=== PATIENT | female | born 1980 | race Caucasian/White ===

== ENCOUNTER 2017-09-20 06:57 | Day surgery (SDC) | payer BC ==
[2017-09-20] MEDS ORDERED: BUPIVACAINE 0.25% (MPF) 30 ML INJ (08:43)
[2017-09-20] MEDS ORDERED: PROPOFOL 100 ML (08:58)
[2017-09-20] MEDS ORDERED: ROCURONIUM 50 MG INJ ×2 (08:58→21:23)
[2017-09-20] MEDS ORDERED: CEFAZOLIN 1 GM INJ ×2 (08:58→21:23)
[2017-09-20] MEDS ORDERED: ACETAMINOPHEN 1000MG/100ML IV 100 ML (09:04)
[2017-09-20] MEDS ORDERED: DEXAMETHASONE 4 MG/ML 1 ML INJ ×2 (09:21→21:23)
[2017-09-20] MEDS ORDERED: ONDANSETRON 4 MG INJ ×2 (09:22→21:23)
[2017-09-20] MEDS ORDERED: LABETALOL HCL 20MG INJ (09:23)
[2017-09-20] MEDS ORDERED: SUGAMMADEX SODIUM 200 MG/2 ML VIAL IV (09:38)
[2017-09-20] MEDS: BUPIVACAINE 0.25% (MPF) 30 ML INJ (09:38)
[2017-09-20] MEDS ORDERED: ALBUTEROL 0.083% (NEB) 2.5 MG/3 ML AMP (10:13)
[2017-09-20] MEDS ORDERED: EPHEDrine SULFATE 50 MG/5 ML SYG IV (10:30)
[2017-09-20] MEDS ORDERED: FENTAnyl 50 MCG/ML VIAL IV ×2 (10:30)
[2017-09-20] MEDS ORDERED: MEPERIDINE 25 MG INJ IV (10:30)
[2017-09-20] MEDS ORDERED: DIPHENHYDRAMINE 50 MG INJ IV (10:30)
[2017-09-20] MEDS ORDERED: HYDROmorphONE (0.2 MG/ML) 10ML SYG IV (10:30)
[2017-09-20] MEDS ORDERED: hydrALAzine 20 MG INJ IV (10:30)
[2017-09-20] MEDS ORDERED: KETOROLAC 30 MG INJ IV (10:30)
[2017-09-20] MEDS ORDERED: LABETALOL HCL 20MG INJ IV (10:30)
[2017-09-20] MEDS ORDERED: OXYCODONE/ACETAMINOPHEN (5/325) TAB PO ×2 (10:30)
[2017-09-20] MEDS: ALBUTEROL 0.083% (NEB) 2.5 MG/3 ML AMP HHN (10:32)
[2017-09-20] MEDS: HYDROmorphONE (0.2 MG/ML) 10ML SYG IV (10:48)
[2017-09-20] MEDS: METOCLOPRAMIDE 10 MG INJ IV (11:21)
[2017-09-20] MEDS: ONDANSETRON 4 MG INJ IV (12:22)
[2017-09-20] MEDS ORDERED: GLYCOPYRROLATE 0.4 MG INJ (21:23)
[2017-09-20] MEDS ORDERED: MIDAZOLAM 1 MG/ML 2 ML INJ (21:23)
[2017-09-20] MEDS ORDERED: NEOSTIGMINE 3 MG/3 ML SYRINGE (21:23)
[2017-09-20] MEDS ORDERED: PROPOFOL 20 ML (21:23)
[2017-09-20] MEDS ORDERED: FENTAnyl 50 MCG/ML VIAL (21:23)
[2017-09-20] MEDS ORDERED: METOCLOPRAMIDE 10 MG INJ (21:51)
== END 2017-09-20 12:32 | disposition home or self-care (01) ==
LOC: SDS 06:57
DX: J35.01 Chronic tonsillitis (principal); J45.909 Unspecified asthma, uncomplicated
CPT/HCPCS: 42826; 84703; 94664

== ENCOUNTER 2017-09-20 19:28 | Observation (INO) | payer BC ==
[2017-09-20] MEDS: ONDANSETRON 4 MG INJ IV (19:53)
[2017-09-20] MEDS: SOD CHLORIDE 0.9% 1,000 ML IV (19:54)
[2017-09-20] MEDS ORDERED: BUPIVACAINE 0.25% (MPF) 30 ML INJ (20:54)
[2017-09-20 21:34] LABS: ADD MAN DIFF? NO
[2017-09-20 21:36] LABS: WHITE BLOOD COUNT 11.3 10^3/ul (4.8-10.8)
[2017-09-20 21:36] LABS: BASOPHILS % 0.1 % (0.0-2.0); HEMATOCRIT 35.3 % (37.0-47.0); HEMOGLOBIN 12.1 g/dl (12.0-16.0); LYMPHOCYTES # 0.6 10^3/ul (0.8-2.9); LYMPHOCYTES % 5.5 % (15.0-51.0); MEAN CORPUSCULAR HEMOGLOBIN 30.2 pg (29.0-33.0); MEAN CORPUSCULAR HGB CONC 34.3 g/dl (32.0-37.0); MEAN PLATELET VOLUME 10.4 fl (7.4-10.4); MONOCYTE # 0.1 10^3/ul (0.3-0.9); MONOCYTES % 0.6 % (0.0-11.0); NEUTROPHIL # 10.6 10^3/ul (1.6-7.5); NEUTROPHILS % 93.5 % (39.0-77.0); PLATELET COUNT 337 10^3/UL (140-415); RED BLOOD COUNT 4.01 10^6/ul (4.20-5.40); RED CELL DISTRIBUTION WIDTH 12.2 % (11.5-14.5)
[2017-09-20] MEDS ORDERED: morphine 2 MG INJ IV (22:00)
[2017-09-20] MEDS ORDERED: FENTAnyl 50 MCG/ML VIAL (22:24)
[2017-09-20] MEDS ORDERED: HYDROmorphONE (0.2 MG/ML) 10ML SYG IV (22:30)
[2017-09-20] MEDS: FENTAnyl 50 MCG/ML VIAL IV (22:44)
[2017-09-21] MEDS: OXYCODONE/ACETAMINOPHEN (5/325) TAB PO ×2 (02:13→08:05)
[2017-09-21] MEDS: ONDANSETRON 4 MG INJ IV ×2 (02:15→08:05)
[2017-09-21 05:34] LABS: HEMATOCRIT 31.3 % (37.0-47.0); HEMOGLOBIN 11.2 g/dl (12.0-16.0)
== END 2017-09-21 10:06 | disposition home or self-care (01) ==
LOC: E/R 19:28 → MS1 20:58 → SDS 20:58 → MS1 23:20
PROVIDERS: Otolaryngology
DX: J95.830 Postprocedural hemorrhage of a respiratory system organ or structure following a respiratory system procedure (principal); J45.909 Unspecified asthma, uncomplicated; Z88.6 Allergy status to analgesic agent; Z88.1 Allergy status to other antibiotic agents; Z88.5 Allergy status to narcotic agent; Z88.8 Allergy status to other drugs, medicaments and biological substances; Y83.8 Other surgical procedures as the cause of abnormal reaction of the patient, or of later complication, without mention of misadventure at the time of the procedure
CPT/HCPCS: 42960; 85014; 85018; 85025; 96374; 99285-25

== ENCOUNTER 2018-01-07 03:48 | Emergency (ER) | payer BC ==
[2018-01-07 04:41] LABS: ADD MAN DIFF? NO
[2018-01-07 04:45] LABS: BASOPHILS % 0.3 % (0.0-2.0); EOSINOPHILS # 0.1 10^3/ul (0.0-0.5); EOSINOPHILS % 1.6 % (0.0-7.0); HEMATOCRIT 40.5 % (37.0-47.0); HEMOGLOBIN 13.4 g/dl (12.0-16.0); LYMPHOCYTES # 2.7 10^3/ul (0.8-2.9); LYMPHOCYTES % 36.2 % (15.0-51.0); MEAN CORPUSCULAR HEMOGLOBIN 29.6 pg (29.0-33.0); MEAN CORPUSCULAR HGB CONC 33.1 g/dl (32.0-37.0); MEAN CORPUSCULAR VOLUME 89.6 fl (82.0-101.0); MEAN PLATELET VOLUME 10.1 fl (7.4-10.4); MONOCYTE # 0.5 10^3/ul (0.3-0.9); MONOCYTES % 7.1 % (0.0-11.0); NEUTROPHIL # 4.1 10^3/ul (1.6-7.5); NEUTROPHILS % 54.7 % (39.0-77.0); PLATELET COUNT 345 10^3/UL (140-415); RED BLOOD COUNT 4.52 10^6/ul (4.20-5.40); RED CELL DISTRIBUTION WIDTH 12.3 % (11.5-14.5)
[2018-01-07 04:45] LABS: WHITE BLOOD COUNT 7.6 10^3/ul (4.8-10.8)
[2018-01-07] MEDS: morphine 4 MG/ML VIAL IV (04:47)
[2018-01-07] MEDS: SOD CHLORIDE 0.9% 1,000 ML IV (04:50)
[2018-01-07] MEDS: ONDANSETRON 4 MG INJ IV (04:50)
[2018-01-07] MEDS: KETOROLAC 30 MG INJ IV (04:50)
[2018-01-07 04:52] LABS: ADD UMIC YES; UR ASCORBIC ACID NEGATIVE (NEGATIVE); UR BILIRUBIN (Dip) NEGATIVE (NEGATIVE); UR BLOOD (Dip) 1+ mg/dL (NEGATIVE); UR CLARITY CLEAR (CLEAR); UR COLOR STRAW (YELLOW); UR GLUCOSE (Dip) NEGATIVE (NEGATIVE); UR KETONES (Dip) NEGATIVE (NEGATIVE); UR LEUKOCYTE ESTERASE (Dip) NEGATIVE Leu/ul (NEGATIVE); UR NITRITE (Dip) NEGATIVE (NEGATIVE); UR RBC 0 /HPF (0-5); UR SPECIFIC GRAVITY (Dip) 1.009 (1.003-1.030); UR SQUAMOUS EPITHELIAL CELL FEW /HPF (FEW); UR TOTAL PROTEIN (Dip) NEGATIVE (NEGATIVE); UR UROBILINOGEN (Dip) NEGATIVE (NEGATIVE); UR WBC 1 /HPF (0-5)
[2018-01-07 05:03] LABS: ALANINE AMINOTRANSFERASE 41 IU/L (13-69); ALBUMIN 4.2 g/dl (3.3-4.9); ALBUMIN/GLOBULIN RATIO 1.23; ALKALINE PHOSPHATASE 75 IU/L (42-121); ANION GAP 10 (8-16); ASPARTATE AMINO TRANSFERASE 31 IU/L (15-46); BILIRUBIN,INDIRECT 0.2 mg/dl (0-1.1); BILIRUBIN,TOTAL 0.2 mg/dl (0.2-1.3); BLOOD UREA NITROGEN 10 mg/dl (7-20); CALCIUM 9.5 mg/dl (8.4-10.2); CARBON DIOXIDE 28 mmol/L (21-31); CHLORIDE 106 mmol/L (97-110); CREATININE 0.56 mg/dl (0.44-1.00); GLUCOSE 100 mg/dl (70-220); LIPASE 144 U/L (23-300); POTASSIUM 3.9 mmol/L (3.5-5.1); SODIUM 140 mmol/L (135-144); TOTAL PROTEIN 7.6 g/dl (6.1-8.1)
== END 2018-01-07 05:55 | disposition home or self-care (01) ==
LOC: E/R 03:48
DX: R10.84 Generalized abdominal pain (principal); R11.2 Nausea with vomiting, unspecified; J45.909 Unspecified asthma, uncomplicated
CPT/HCPCS: 36415; 74176; 80053; 81001; 81025; 83690; 85025; 87086; 96374; 96375; 99285-25

== ENCOUNTER 2018-04-15 07:39 | Emergency (ER) | payer BC ==
[2018-04-15 08:33] LABS: URINE BLOOD (Dip) POC Trace-intact (NEGATIVE); URINE GLUCOSE (Dip) POC Negative (NEGATIVE); URINE KETONES (Dip) POC Negative (NEGATIVE); URINE LEUKOCYTE EST (Dip) POC Negative (NEGATIVE); URINE NITRITE (Dip) POC Negative (NEGATIVE); URINE TOTAL PROTEIN POC Trace (NEGATIVE)
[2018-04-15] MEDS: KETOROLAC 30 MG INJ IM (08:47)
== END 2018-04-15 09:02 | disposition home or self-care (01) ==
LOC: FTE 07:39
DX: R51 Headache (principal); J45.909 Unspecified asthma, uncomplicated
CPT/HCPCS: 81003; 81025; 96372; 99284-25

== ENCOUNTER 2019-04-02 07:04 | Emergency (ER) | payer BC ==
[2019-04-02] MEDS: METHYLPREDNISOLONE 125 MG INJ IV (07:35)
[2019-04-02] MEDS: ALBUTEROL 0.083% (NEB) 2.5 MG/3 ML AMP HHN (07:44)
[2019-04-02] MEDS: IPRATROPIUM (NEB) 0.5 MG/2.5 ML AMP HHN (07:44)
[2019-04-02 08:23] LABS: ADD MAN DIFF? NO
[2019-04-02 08:27] LABS: BASOPHILS % 0.3 % (0.0-2.0); EOSINOPHILS # 0.2 10^3/ul (0.0-0.5); EOSINOPHILS % 2.1 % (0.0-7.0); HEMOGLOBIN 11.5 g/dl (12.0-16.0); LYMPHOCYTES # 3.3 10^3/ul (0.8-2.9); LYMPHOCYTES % 43.1 % (15.0-51.0); MEAN CORPUSCULAR HEMOGLOBIN 29.9 pg (29.0-33.0); MEAN CORPUSCULAR HGB CONC 32.9 g/dl (32.0-37.0); MEAN CORPUSCULAR VOLUME 91.1 fl (82.0-101.0); MEAN PLATELET VOLUME 9.5 fl (7.4-10.4); MONOCYTE # 0.5 10^3/ul (0.3-0.9); MONOCYTES % 6.2 % (0.0-11.0); NEUTROPHIL # 3.7 10^3/ul (1.6-7.5); PLATELET COUNT 311 10^3/UL (140-415); RED BLOOD COUNT 3.84 10^6/ul (4.20-5.40); RED CELL DISTRIBUTION WIDTH 12.3 % (11.5-14.5)
[2019-04-02 08:27] LABS: WHITE BLOOD COUNT 7.8 10^3/ul (4.8-10.8)
[2019-04-02 08:48] LABS: ALANINE AMINOTRANSFERASE 45 IU/L (13-69); ALBUMIN 3.9 g/dl (3.3-4.9); ALBUMIN/GLOBULIN RATIO 1.02; ALKALINE PHOSPHATASE 79 IU/L (42-121); ANION GAP 9 (5-13); ASPARTATE AMINO TRANSFERASE 36 IU/L (15-46); BILIRUBIN,INDIRECT 0.4 mg/dl (0-1.1); BILIRUBIN,TOTAL 0.4 mg/dl (0.2-1.3); BLOOD UREA NITROGEN 12 mg/dl (7-20); CALCIUM 9.4 mg/dl (8.4-10.2); CARBON DIOXIDE 28 mmol/L (21-31); CHLORIDE 102 mmol/L (97-110); CREATININE 0.64 mg/dl (0.44-1.00); Estimated GFR > 60 mL/min (>60); GLUCOSE 108 mg/dl (70-220); POTASSIUM 3.8 mmol/L (3.5-5.1); SODIUM 139 mmol/L (135-144); TOTAL PROTEIN 7.7 g/dl (6.1-8.1)
[2019-04-02 08:54] LABS: D-DIMER 293.08 ng/ml (<460)
[2019-04-02 08:59] LABS: TROPONIN-I < 0.012 ng/ml (0.000-0.120)
== END 2019-04-02 09:20 | disposition home or self-care (01) ==
LOC: FTE 09:20
DX: R09.89 Other specified symptoms and signs involving the circulatory and respiratory systems (principal); J45.909 Unspecified asthma, uncomplicated
CPT/HCPCS: 71045; 80053; 84484; 85025; 85378; 93005; 94664; 96374; 99285-25

== ENCOUNTER 2019-04-02 18:52 | Emergency (ER) | payer BC ==
[2019-04-02] MEDS: SOD CHLORIDE 0.9% 1,000 ML IV (20:09)
[2019-04-02] MEDS: LORAZEPAM 2 MG INJ IV (20:09)
== END 2019-04-02 23:03 | disposition home or self-care (01) ==
LOC: E/R 18:52
DX: F41.1 Generalized anxiety disorder (principal); E86.0 Dehydration; J45.901 Unspecified asthma with (acute) exacerbation; R40.2142 Coma scale, eyes open, spontaneous, at arrival to emergency department; R40.2252 Coma scale, best verbal response, oriented, at arrival to emergency department; R40.2362 Coma scale, best motor response, obeys commands, at arrival to emergency department
CPT/HCPCS: 81025; 93005; 96361; 96374; 99284-25